=== PATIENT | male | born 1935 | race Caucasian/White ===

== ENCOUNTER 2016-06-02 06:13 | Inpatient (IN) | payer MEDICARE, OTHER ==
[2016-05-26 12:50] VITALS: BMI 39.2
[2016-05-26 13:24] VITALS: BP_SYST 112; RESP 20; TEMP 98.3
[2016-06-02] VITALS (55 sets, daily range): BP systolic 90–192; RESP 14–28; TEMP 97–98.6; Ht 160 cm; Wt 99.9 kg
[~2016-06-02] VITALS: Ht 160 cm; Wt 99.9 kg
[2016-06-02] MEDS ORDERED: CEFAZOLIN 2,000 MG in SODIUM CHLORIDE 0.9% 100 ML IV ONE (06:20)
[2016-06-02] MEDS ORDERED: D5-1/2-NS W/KCL 20MEQ/L 1,000 ML IV SCH ×2 (06:20→10:30)
[2016-06-02] MEDS ORDERED: LIDOCAINE 1% BUFFERED 1 ML SYR INTRADERM PRN (06:45)
[2016-06-02] MEDS ORDERED: METOCLOPRAMIDE 10 MG/2 ML VIAL IV PUSH ONE (06:45)
[2016-06-02] MEDS ORDERED: MIDAZOLAM 2 MG/2 ML INJ IV ONE (06:45)
[2016-06-02] MEDS ORDERED: LACT RINGERS 1,000 ML IV SCH (06:45)
[2016-06-02] MEDS ORDERED: DILAUDID 1 MG/ML AMP IV PRN (07:20)
[2016-06-02] MEDS ORDERED: OXYCODONE 5 MG TAB PO PRN (07:20)
[2016-06-02] MEDS ORDERED: MORPHINE 2 MG/ML SYR IV PRN (07:20)
[2016-06-02] MEDS ORDERED: ONDANSETRON 4 MG VIAL IV PRN ×2 (07:20→10:30)
[2016-06-02] MEDS ORDERED: MEPERIDINE 25 MG/ML IV PRN (07:20)
[2016-06-02] MEDS ORDERED: MORPHINE 4 MG/ML SYR IV PRN (07:20)
[2016-06-02] MEDS ORDERED: NEB-ALBUTEROL 2.5 MG/3 ML INH PRN (08:40)
[2016-06-02] MEDS ORDERED: NITROGLYCERIN 50 MG/250 ML 250 ML IV SCH (10:30)
[2016-06-02] MEDS ORDERED: NEB-XOPENEX 0.63 MG/3 ML INH PRN (10:30)
[2016-06-02] MEDS ORDERED: DOPamine PREMIX 250 ML IV SCH (10:30)
[2016-06-02] MEDS ORDERED: SALINE FLUSH 10 ML FLUSH PRN (10:30)
[2016-06-02] MEDS ORDERED: ACETAMINOPHEN 325 MG TAB PO PRN (10:30)
[2016-06-02] MEDS ORDERED: BUPIVACAINE 0.5% PF 30 ML NERVEBLOCK ONE (13:57)
[2016-06-02] MEDS ORDERED: NITROGLYCERIN 50 MG/10 ML VIAL IV ONE (13:57)
[2016-06-02] MEDS ORDERED: GELATIN SPONGE 100 CM2 TOPICAL ONE (13:57)
[2016-06-02] MEDS ORDERED: PROTAMINE 50 MG/5 ML VIAL IV ONE (13:57)
[2016-06-02] MEDS ORDERED: THROMBIN SOLN 20000 UNITS KIT TOPICAL ONE (13:57)
[2016-06-02] MEDS ORDERED: BACITRACIN 50,000 UNITS INJ IRRIG ONE (13:57)
[2016-06-02] MEDS ORDERED: FENTANYL 100 MCG/2 ML AMP IV ONE (14:02)
[2016-06-02] MEDS ORDERED: ACETAMINOPHEN 1,000 MG/100 ML IV ONE (14:02)
[2016-06-02] MEDS ORDERED: ONDANSETRON 4 MG VIAL IV PUSH ONE (14:02)
[2016-06-02] MEDS ORDERED: LIDOCAINE 2% JELLY 30 ML TOPICAL ONE (14:02)
[2016-06-02] MEDS ORDERED: LIDOCAINE 2% SYR 5 ML IV ONE (14:02)
[2016-06-02] MEDS ORDERED: SUGAMMADEX 200 MG/2 ML VIAL IV ONE (14:02)
[2016-06-02] MEDS ORDERED: PROPOFOL 20 ML PER ML IV ONE (14:02)
[2016-06-02] MEDS ORDERED: PHENYLEPHRINE 10 MG/ML VIAL IV ONE (14:02)
[2016-06-02] MEDS ORDERED: ALBUTEROL HFA INH ONE (14:02)
[2016-06-02] MEDS ORDERED: ROCURONIUM 50 MG VIAL IV ONE (14:02)
[2016-06-02] MEDS: CEFAZOLIN 2,000 MG in SODIUM CHLORIDE 0.9% 100 ML IV SCH ×2 (15:45→23:52)
[2016-06-02] MEDS: PENTOXIFYLLINE 400 MG TAB PO SCH ×2 (16:14→21:09)
[2016-06-02] MEDS: DUONEB INH SCH ×2 (19:00→22:39)
[2016-06-02] MEDS: LEVEMIR INSULIN SUBQ SCH (21:00)
[2016-06-02] MEDS: Atorvastatin 40 MG TAB PO SCH (21:09)
[2016-06-02] MEDS: Losartan 50 MG TAB PO SCH (21:09)
[2016-06-02] MEDS: ASPIRIN EC 325 MG TAB PO SCH (21:09)
[2016-06-02] MEDS: Furosemide 80 MG TAB PO SCH (21:09)
[2016-06-02] MEDS: GABAPENTIN 300 MG CAP PO SCH (21:09)
[2016-06-02] MEDS: CITALOPRAM 20 MG TAB PO SCH (21:11)
[2016-06-02] MEDS: SALINE FLUSH 10 ML FLUSH SCH (21:11)
[2016-06-02] MEDS: NEB-BROVANA 15 MCG/2 ML INH SCH (22:39)
[2016-06-02] MEDS: NEB-BUDESONIDE 0.5 MG INH SCH (22:39)
[2016-06-02] MEDS: SODIUM CHLORIDE 0.9% FLUSH BAG 500 ML IV SCH (23:54)
[2016-06-03] VITALS (27 sets, daily range): BP systolic 102–158; RESP 18–25; TEMP 97.3–99
[2016-06-03] MEDS: DUONEB INH SCH ×5 (06:21→22:34)
[2016-06-03] MEDS: NEB-BUDESONIDE 0.5 MG INH SCH ×2 (06:21→20:00)
[2016-06-03] MEDS: NEB-BROVANA 15 MCG/2 ML INH SCH ×2 (06:21→20:00)
[2016-06-03] MEDS ORDERED: MDI-SPIRIVA 5 DOSES INH SCH (07:00)
[2016-06-03] MEDS ORDERED: TIOTROPIUM BROMIDE INH SCH (07:00)
[2016-06-03] MEDS: Losartan 50 MG TAB PO SCH (09:04)
[2016-06-03] MEDS: ASPIRIN EC 325 MG TAB PO SCH (09:04)
[2016-06-03] MEDS: PENTOXIFYLLINE 400 MG TAB PO SCH ×3 (09:04→20:07)
[2016-06-03] MEDS: Furosemide 80 MG TAB PO SCH ×2 (09:04→16:47)
[2016-06-03] MEDS: SALINE FLUSH 10 ML FLUSH SCH ×2 (09:04→20:09)
[2016-06-03] MEDS: OXYBUTYNIN XL 5 MG TAB PO SCH (09:04)
[2016-06-03] MEDS ORDERED: Furosemide 40 MG/4 ML VIAL IV ONE (09:45)
[2016-06-03] MEDS: Atorvastatin 40 MG TAB PO SCH (20:07)
[2016-06-03] MEDS: GABAPENTIN 300 MG CAP PO SCH (20:07)
[2016-06-03] MEDS: CITALOPRAM 20 MG TAB PO SCH (20:07)
[2016-06-03] MEDS: LEVEMIR INSULIN SUBQ SCH (20:34)
[2016-06-04] VITALS (7 sets, daily range): BP systolic 106–125; RESP 18–24; TEMP 98–98.7
[2016-06-04] MEDS ORDERED: Furosemide 40 MG/4 ML VIAL ONE (03:12)
[2016-06-04] MEDS: SODIUM CHLORIDE 0.9% FLUSH BAG 500 ML IV SCH (05:13)
[2016-06-04] MEDS: DUONEB INH SCH ×3 (06:52→15:00)
[2016-06-04] MEDS: NEB-BUDESONIDE 0.5 MG INH SCH (06:52)
[2016-06-04] MEDS: NEB-BROVANA 15 MCG/2 ML INH SCH (06:52)
[2016-06-04] MEDS: Losartan 50 MG TAB PO SCH (09:00)
[2016-06-04] MEDS: OXYBUTYNIN XL 5 MG TAB PO SCH (09:09)
[2016-06-04] MEDS: ASPIRIN EC 325 MG TAB PO SCH (09:10)
[2016-06-04] MEDS: Furosemide 80 MG TAB PO SCH (09:10)
[2016-06-04] MEDS: PENTOXIFYLLINE 400 MG TAB PO SCH (09:10)
[2016-06-04] MEDS ORDERED: Furosemide 100 MG/10 ML VIAL IV ONE (10:35)
[2016-06-04] MEDS: SALINE FLUSH 10 ML FLUSH SCH (11:18)
== END 2016-06-04 17:53 | disposition home or self-care (01) | DRG 38 ==
LOC: ENRESERVTM → ENRESERVDT → CANRESERV → ENPENDDIS 06:13 → SDS 06:13 → ICU 18:49 → 5THW 06-03 18:33
PROVIDERS: ADMIT Surgery Vascular Surgery; ATTEND Surgery Vascular Surgery
PROC: 03CH0ZZ Extirpation of Matter from Right Common Carotid Artery, Open Approach (ICD-10-PCS; principal; 2016-06-02 07:25)
CPT/HCPCS: 36600; 71010; 80048; 80069; 82040; 82803; 82947; 83735; 83880; 84100; 85025; 94640; 94660; 94799; 99223; 99233; 99291